=== PATIENT | female | born 1965 | race Caucasian/White ===

== ENCOUNTER 2018-12-09 12:50 | Outpatient (CLI) | payer OTHER | END 2018-12-09 23:59 | disposition home or self-care (01) | LOC: RAD 12:50 | PROVIDERS: ATTEND Registered Nurse | DX: R13.10 Dysphagia, unspecified (principal); G47.33 Obstructive sleep apnea (adult) (pediatric); J45.909 Unspecified asthma, uncomplicated; E89.0 Postprocedural hypothyroidism; E66.01 Morbid (severe) obesity due to excess calories; Z90.49 Acquired absence of other specified parts of digestive tract; Z90.710 Acquired absence of both cervix and uterus; Z87.891 Personal history of nicotine dependence | CPT/HCPCS: 74220 ==